=== PATIENT | female | born 1990 | race Caucasian/White ===

== ENCOUNTER → 2023-12-13 13:49 | Outpatient (REF) | payer OTHER, SELFPAY | LOC: PNTC 13:49 | PROVIDERS: ATTENDING PHYSICIAN Obstetrics & Gynecology | DX: Z87.51 Personal history of pre-term labor (principal) | CPT/HCPCS: 76816 ==

== ENCOUNTER 2024-01-12 17:54 | Inpatient (IN) | payer OTHER, SELFPAY ==
[2024-01-12 18:02] VITALS: BP 139/84; BMI 27.1
[2024-01-12] MEDS: LR 1000 IV ×2 (18:30→19:26)
[2024-01-12 18:43] LABS: % Basophils 0.4 % (0-2); % Immature Granulocytes 0.8 % (0-0.5); % Lymphocytes 23.9 % (20.5-51.1); % Monocytes 7.5 % (1.7-9.3); % Neutrophils 66.4 % (42.2-75.2); Absolute Basophils 0.1 10^3/uL (0-0.2); Absolute Eosinophils 0.1 10^3/uL (0-0.7); Absolute Immature Granulocytes 0.1 10^3/uL (0-0.05); Absolute Lymphocytes 3.1 10^3/uL (1.2-3.4); Absolute Neutrophils 8.7 10^3/uL (1.4-6.5); Hematocrit 35.8 % (37.0-47.0); Hemoglobin 12.3 g/dL (12.0-16.0); Mean Corp Hgb Conc. 34.4 g/dL (33.0-37.0); Mean Corpuscular Volume 84.4 fL (81.0-99.0); Nucleated Red Blood Cells % 0 %; Platelet Count 246 10^3/uL (130-400); Red Blood Cell Count 4.24 10^6/uL (4.20-5.40); Red Cell Dist. Width 14.6 % (11.5-14.5); White Blood Cell Count 13.1 10^3/uL (4.8-10.8)
[2024-01-12 19:05] LABS: ALT (SGPT) 20 U/L (0-35); AST (SGOT) 30 U/L (14-36); Albumin 3.6 g/dl (3.5-5.0); Alkaline Phosphatase 194 U/L (38-126); Blood Urea Nitrogen 6 mg/dl (7-17); Calcium 9.3 mg/dl (8.4-10.2); Carbon Dioxide 22 mmol/L (22-30); Chloride 104 mmol/L (98-107); Glucose 84 mg/dl (70-99); Potassium 3.6 mmol/L (3.5-5.1); Sodium 132 mmol/L (135-145); Total Bilirubin 0.4 mg/dl (0.2-1.3); Total Protein 6.7 g/dl (6.3-8.2)
[2024-01-12 19:08] LABS: Protein/creatinine Ratio 0.9; Urine Protein 18 mg/dl
[2024-01-12 19:15] LABS: Estimated Creatinine Clearance > 125 ml/min; eGFR > 60.00
[2024-01-12] MEDS: PENICILLIN 110 UNITS IV (19:26)
[2024-01-12] MEDS: PENICILLIN 55 UNITS IV (23:06)
[2024-01-12] MEDS: PITOCIN 30 UNITS/NSS 500 ML IV (23:15)
[2024-01-13] MEDS: MOTRIN 600 MG PO ×2 (00:43→20:03)
[2024-01-13] MEDS: TYLENOL 650 MG PO (04:22)
[2024-01-13 06:00] LABS: Hematocrit 32.4 % (37.0-47.0); Hemoglobin 10.6 g/dL (12.0-16.0); Mean Corp Hgb Conc. 32.7 g/dL (33.0-37.0); Mean Corpuscular Hgb 28.3 pg (27.0-31.0); Mean Corpuscular Volume 86.4 fL (81.0-99.0); Platelet Count 217 10^3/uL (130-400); Red Blood Cell Count 3.75 10^6/uL (4.20-5.40); Red Cell Dist. Width 14.5 % (11.5-14.5)
[2024-01-13 14:53] LABS: Syphilis/T. pallidum Ab Reflex Negative (Negative)
[2024-01-14] MEDS: MOTRIN 600 MG PO (02:11)
[2024-01-14] MEDS: TYLENOL 650 MG PO (06:37)
[2024-01-14] MEDS: SENOKOT-S 1 TABLET PO (08:48)
== END 2024-01-14 13:00 | disposition home or self-care (01) | DRG 807 ==
LOC: LDRP 17:54
PROVIDERS: ADMITTING PHYSICIAN Obstetrics & Gynecology; FAMILY PHYSICIAN Nurse Practitioner Adult Health
PROC: 10E0XZZ Delivery of Products of Conception, External Approach (ICD-10-PCS; 2024-01-12)
PROC: 0HQ9XZZ Repair Perineum Skin, External Approach (ICD-10-PCS; 2024-01-12)
DX: O60.14X0 Preterm labor third trimester with preterm delivery third trimester, not applicable or unspecified (principal); Z37.0 Single live birth; O70.0 First degree perineal laceration during delivery; Z3A.36 36 weeks gestation of pregnancy
CPT/HCPCS: 88307; 80053; 82570; 84156; 85025; 85027; 86780; 86850; 86900; 86901